=== PATIENT | female | born 1955 | race Caucasian/White ===

== ENCOUNTER → 2017-05-12 | Outpatient (CLI) | payer MEDICARE, OTHER ==
[~2017-05-12] MED LIST: REGADENOSON 0.4 MG/5 ML SYRINGE IV ONE
--- NOTE | 2017-05-12 10:08 | ECHOF ---
Referral Reason:R94.31 Abn EKG MEASUREMENTS -------- HEIGHT: 157.5 cm WEIGHT: 49.9 kg BP: 113/67 IVSd: 1.2 cm (0.6 - 1.1) LVIDd: 4.0 cm (3.9 - 5.3) LVPWd: 1.2 cm (0.6 - 1.1) IVSs: 1.6 cm LVIDs: 2.3 cm LVPWs: 1.8 cm LAESV Index (A-L): 34.49 ml/m Ao Diam: 3.2 cm (2.0 - 3.7) AV Cusp: 2.3 cm (1.5 - 2.6) LA Diam: 2.3 cm (2.7 - 3.8) MV EXCURSION: 16.703 mm (> 18.000) MV EF SLOPE: 111 mm/s (70 - 150) EPSS: 1.2 cm MV E Gomez: 0.91 m/s MV DecT: 186 ms MV A Gomez: 1.00 m/s MV E/A Ratio: 0.91 AR PHT: 399 ms RAP: 5.00 mmHg RVSP: 30.58 mmHg FINDINGS -------- Sinus rhythm. This was a technically good study. The left ventricular size is normal. There is mild concentric left ventricular hypertrophy. Overa ll left ventricular systolic function is normal with, an EF between 55 - 60 %. The right ventricle is normal in size. LA is moderately dilated 34-39 ml/m2 The right atrium is normal in size. The aortic valve is trileaflet, and appears structurally normal. No aortic stenosis or regurgitation. Mild mitral regurgitation is present. Mild tricuspid regurgitation present. The right ventricular systolic pressure, as measured by Doppl er, is 30.58mmHg. Pulmonic valve appears structurally normal. The aortic root, ascending aorta and aortic arch are normal. Normal inferior vena cava with normal inspiratory collapse consistent with estimated right atrial pre ssure of 5 mmHg. The pericardium is normal. CONCLUSIONS -------- 1. Sinus rhythm. 2. This was a technically good study. 3. The left ventricular size is normal. 4. There is mild concentric left ventricular hypertrophy. 5. Overall left ventricular systolic function is normal with, an EF between 55 - 60 %. 6. The right ventricle is normal in size. 7. LA is moderately dilated 34-39 ml/m2 8. The right atrium is normal in size. 9. The aortic valve is trileaflet, and appears structurally normal. No aortic stenosis or regurgitati on. 10. Mild mitral regurgitation is present. 11. Mild tricuspid regurgitation present. 12. The right ventricular systolic pressure, as measured by Doppler, is 30.58mmHg. 13. Pulmonic valve appears structurally normal. 14. The aortic root, ascending aorta and aortic arch are normal. 15. Normal inferior vena cava with normal inspiratory collapse consistent with estimated right atrial pressure of 5 mmHg. 16. The pericardium is normal. MUSIC AUTOGRAPHER: Ivonne Pascual RDCS
--- NOTE | 2017-05-12 11:16 | NM ---
EXAMINATION TYPE: NM stress lexiscan cardiolite DATE OF EXAM: 05/12/2017 COMPARISON: NONE HISTORY: Abnormal EKG TECHNIQUE: After the intravenous administration of 10.5 mCi Tc 99m Sestamibi - Cardiolite resting SP ECT images acquired 45 minutes post injection. The patient received 0.4mg Lexiscan, 25.4 mCi Tc 99m Sestamibi - Stress images obtained [address] injection FINDINGS: No stress-induced ischemic changes are evident. No fixed defects to suggest prior infarct a re evident. Ejection fraction is 67% is normal. Gated wall motion appears normal. There is a suggestion on the polar maps a small defect at the cardiac apex which is not identified on SPECT imaging. IMPRESSION: 1. No suspicious changes for stress-induced ischemic change. 2. No prior infarcts identified. 3. Ejection fraction of 67% is normal
--- NOTE | 2017-05-12 12:08 | P.STRESS ---
- Stress Test Note Stress Test Results/Findings: Exam Performed: NM stress lexiscan cardiolite Exam Date: 05/12/17 Reason for Exam: Abn EKG Height: 5 ft 2 in Weight: 49.895 kg Protocol: Sharon scan Stage: na Duration of Exercise: na Resting Heart Rate: 68 Resting Blood Pressure: 124/91 Maximum Achieved Heart Rate: 97 Maximum Achieved Blood Pressure: 133/87 85% PMHR: na 100% PMHR: na METS: na Technologist Comment: Stress Test Results/Findings: Baseline EKG showed sinus rhythm with normal NC interval and QRS duration. EKGs taken during and after the Lexiscan infusion did not reveal any changes to sized ischemia. New Final impression: #1. Negative Lexiscan stress test #2. Report on the nuclear images to be given by the radiologist
--- NOTE | 2017-05-15 12:12 | EST ---
Stress Test Results/Findings: Exam Performed: NM stress lexiscan cardiolite Exam Date: 05/12/17 Reason for Exam: Abn EKG Height: 5 ft 2 in Weight: 49.895 kg Protocol: Sharon scan Stage: na Duration of Exercise: na Resting Heart Rate: 68 Resting Blood Pressure: 124/91 Maximum Achieved Heart Rate: 97 Maximum Achieved Blood Pressure: 133/87 85% PMHR: na 100% PMHR: na METS: na Technologist Comment: Stress Test Results/Findings: Baseline EKG showed sinus rhythm with normal [place] interval and QRS duration. EKGs taken during and after the Lexiscan infusion did not reveal any changes to sized ischemia. New Final impression: #1. Negative Lexiscan stress test #2. Report on the nuclear images to be given by the radiologist COY
== END ==
LOC: RADNMMAIN 08:09
PROVIDERS: ATTEND Family Medicine
DX: R94.31 Abnormal electrocardiogram [ECG] [EKG] (principal)
CPT/HCPCS: 93017; 93306; 78452; A9500; J2785

== ENCOUNTER → 2017-06-12 | Outpatient (CLI) | payer MEDICARE, OTHER ==
--- NOTE | 2017-06-12 11:38 | XR ---
EXAMINATION TYPE: 2 views right wrist. 2 views right hand. DATE OF EXAM: 06/12/2017 COMPARISON: NONE HISTORY: 61-year-old female with right wrist and hand pain FINDINGS: There is impacted, mildly comminuted fracture of the distal radial metaphysis with mild dorsal displa cement and dorsal angulation. The midcarpal compartment and distal radioulnar joint appear intact. Th ere is associated soft tissue swelling. Moderate to severe degenerative changes at the first CMC joint. Additional osteoarthritic changes sca ttered throughout the DIP joints. No additional acute fracture or dislocation seen. IMPRESSION: Mildly comminuted and impacted Colles' fracture distal radius. Osteoarthritic changes within the hand.
== END | disposition home or self-care (01) ==
LOC: RADXRMAIN 11:10
PROVIDERS: ATTEND Family Medicine
DX: M19.041 Primary osteoarthritis, right hand (principal); S52.531A Colles' fracture of right radius, initial encounter for closed fracture

== ENCOUNTER 2021-03-15 20:38 | Emergency (ER) | payer MEDICARE, OTHER ==
[2021-03-15 21:32] VITALS: BP 152/94; PULSE 104; RESP 16; TEMP 99
[2021-03-15] MEDS ORDERED: ONDANSETRON 4 MG/2 ML VIAL IVP STA (23:43)
[2021-03-15] MEDS ORDERED: SODIUM CHLORIDE 0.9% 1,000 ML IV STA (23:43)
[2021-03-15] MEDS ORDERED: MORPHINE SULFATE 4 MG/ML SYRINGE IV STA (23:43)
[2021-03-15] MEDS ORDERED: PANTOPRAZOLE 40 MG/10 ML VIAL IVP STA (23:43)
--- NOTE | 2021-03-15 23:45 | ED ---
Abdominal Pain HPI - General Chief Complaint: Abdominal Pain Stated Complaint: Back Pain,Fever Time Seen by Provider: 03/15/21 22:10 Source: patient, family, RN notes reviewed, old records reviewed Mode of arrival: ambulatory Limitations: no limitations - History of Present Illness Initial Comments: This is a 65-year-old female to the emergency. Patient coming in with abdominal pain epigastric abdominal pain into her back. She does feel fevers or chills. Although she has no travel history sick contacts he has been back in for coronavirus and has no cough or congestion. Patient feels weak headed and dizzy dehydrated with a decreased appetite. Patient otherwise has history of appendix surgery MD Complaint: abdominal pain -: hour(s) Location: diffuse, periumbilical, epigastric Radiation: epigastric Migration to: epigastric Severity: moderate Severity scale (1-10): 4 Quality: cramping, stabbing Consistency: constant Improves With: nothing Worsens With: nothing Associated Symptoms: nausea - Related Data Home Medications Medication Instructions Recorded Confirmed Furosemide [Lasix] 40 mg PO BID 12/17/14 12/17/14 Hydrocodone/Acetaminophen [[place] 1 each PO Q6HR PRN 12/17/14 12/17/14 5-325] Potassium Chloride [Klor-Con 10] 10 meq PO DAILY 12/17/14 12/17/14 Spironolactone [Aldactone] 25 mg PO DAILY 12/17/14 12/17/14 traZODone HCL 50 mg PO BID 12/17/14 12/17/14 Previous Rx's Medication Instructions Recorded Ciprofloxacin HCl [Cipro] 500 mg PO Q12HR #20 tablet 12/18/14 Allergies Allergy/AdvReac Type Severity Reaction Status Date / Time No Known Allergies Allergy Verified 03/15/21 21:32 Review of Systems ROS Statement: Those systems with pertinent positive or pertinent negative responses have been documented in the HPI. ROS Other: All systems not noted in ROS Statement are negative. Past Medical History Additional Past Medical History / Comment(s): depression, History of Any Multi-Drug Resistant Organisms: None Reported Past Surgical History: Appendectomy, Section Past Psychological History: Depression Smoking Status: Current every day smoker Past Alcohol Use History: None Reported Past Drug Use History: None Reported General Exam Limitations: no limitations General appearance: cachectic Head exam: Present: atraumatic, normocephalic, normal inspection Eye exam: Present: normal appearance, PERRL, EOMI. Absent: scleral icterus, conjunctival injection, periorbital swelling ENT exam: Present: normal exam, mucous membranes moist Neck exam: Present: normal inspection. Absent: tenderness, meningismus, lymphadenopathy Respiratory exam: Present: normal lung sounds bilaterally. Absent: respiratory distress, wheezes, rales, rhonchi, stridor Cardiovascular Exam: Present: regular rate, normal rhythm, normal heart sounds. Absent: systolic murmur, diastolic murmur, rubs, gallop, clicks GI/Abdominal exam: Present: soft, normal bowel sounds. Absent: distended, tenderness, guarding, rebound, rigid Extremities exam: Present: normal inspection, full ROM, normal capillary refill. Absent: tenderness, pedal edema, joint swelling, calf tenderness Back exam: Present: normal inspection Neurological exam: Present: alert, oriented X3, CN II-XII intact Psychiatric exam: Present: normal affect, normal mood Skin exam: Present: warm, dry, intact, normal color. Absent: rash Course Vital Signs 03/15/21 21:28 Temperature 99.0 F Pulse Rate 104 H Respiratory 16 Rate Blood Pressure 152/94 O2 Sat by Pulse 100 Oximetry - Reevaluation(s) Reevaluation #1: 03/15/21 23:45 Medical record is reviewed Reevaluation #2: 03/16/21 02:00 Patient does have improvement of symptoms here in the ER Reevaluation #3: 03/16/21 02:00 She is informed results questions answered Medical Decision Making - Medical Decision Making 65 female with abdominal pain nausea and vomiting. Patient is feeling much better here in the ER and can be discharged home CT labwork are otherwise neg ative - Lab Data Result diagrams: 03/15/21 23:43 03/15/21 23:43 Lab Results 03/15/21 03/15/21 03/15/21 Range/Units 23:43 23:43 23:43 WBC 11.5 H (3.8-10.6) k/uL RBC 5.18 (3.80-5.40) m/uL Hgb 16.0 (11.4-16.0) gm/dL Hct 47.6 H (34.0-46.0) % MCV 91.8 (80.0-100.0) fL MCH 30.9 (25.0-35.0) pg MCHC 33.6 (31.0-37.0) g/dL RDW 12.9 (11.5-15.5) % Plt Count 177 (150-450) k/uL MPV 9.3 Neutrophils % 77 % Lymphocytes % 13 % Monocytes % 7 % Eosinophils % 0 % Basophils % 0 % Neutrophils # 8.8 H (1.3-7.7) k/uL Lymphocytes # 1.6 (1.0-4.8) k/uL Monocytes # 0.9 (0-1.0) k/uL Eosinophils # 0.0 (0-0.7) k/uL Basophils # 0.0 (0-0.2) k/uL Sodium 134 L (137-145) mmol/L Potassium 3.9 (3.5-5.1) mmol/L Chloride 99 (98-107) mmol/L Carbon Dioxide 25 (22-30) mmol/L Anion Gap 10 mmol/L BUN 10 (7-17) mg/dL Creatinine 0.48 L (0.52-1.04) mg/dL Est GFR (CKD-EPI)AfAm >90 (>60 ml/min/1.73 sqM) Est GFR (CKD-EPI)NonAf >90 (>60 ml/min/1.73 sqM) Glucose 108 H (74-99) mg/dL Plasma Lactic Acid Joseph (0.7-2.0) mmol/L Calcium 11.2 H (8.4-10.2) mg/dL Total Bilirubin 1.2 (0.2-1.3) mg/dL AST 49 H (14-36) U/L ALT 25 (4-34) U/L Alkaline Phosphatase 109 (38-126) U/L C-Reactive Protein <0.5 (<1.0) mg/dL Total Protein 8.6 H (6.3-8.2) g/dL Albumin 4.7 (3.5-5.0) g/dL Amylase 105 (30-110) U/L Lipase 194 (23-300) U/L Urine Color Yellow Urine Appearance Clear (Clear) Urine pH 7.0 (5.0-8.0) Ur Specific Williams 1.018 (1.001-1.035) Urine Protein 1+ H (Negative) Urine Glucose (UA) Trace H (Negative) Urine Ketones Negative (Negative) Urine Blood Negative (Negative) Urine Nitrite Negative (Negative) Urine Bilirubin Negative (Negative) Urine Urobilinogen <2.0 (<2.0) mg/dL Ur Leukocyte Esterase Trace H (Negative) Urine RBC 2 (0-5) /hpf Urine WBC 6 H (0-5) /hpf Ur Squamous Epith Cells 2 (0-4) /hpf Calcium Oxalate Crystal Rare H (None) /hpf Urine Bacteria Rare H (None) /hpf Hyaline Casts 3 H (0-2) /lpf Urine Mucus Occasional H (None) /hpf 03/15/21 Range/Units 23:43 WBC (3.8-10.6) k/uL RBC (3.80-5.40) m/uL Hgb (11.4-16.0) gm/dL Hct (34.0-46.0) % MCV (80.0-100.0) fL MCH (25.0-35.0) pg MCHC (31.0-37.0) g/dL RDW (11.5-15.5) % Plt Count (150-450) k/uL MPV Neutrophils % % Lymphocytes % % Monocytes % % Eosinophils % % Basophils % % Neutrophils # (1.3-7.7) k/uL Lymphocytes # (1.0-4.8) k/uL Monocytes # (0-1.0) k/uL Eosinophils # (0-0.7) k/uL Basophils # (0-0.2) k/uL Sodium (137-145) mmol/L Potassium (3.5-5.1) mmol/L Chloride (98-107) mmol/L Carbon Dioxide (22-30) mmol/L Anion Gap mmol/L BUN (7-17) mg/dL Creatinine (0.52-1.04) mg/dL Est GFR (CKD-EPI)AfAm (>60 ml/min/1.73 sqM) Est GFR (CKD-EPI)NonAf (>60 ml/min/1.73 sqM) Glucose (74-99) mg/dL Plasma Lactic Acid Joseph 2.2 H* (0.7-2.0) mmol/L Calcium (8.4-10.2) mg/dL Total Bilirubin (0.2-1.3) mg/dL AST (14-36) U/L ALT (4-34) U/L Alkaline Phosphatase (38-126) U/L C-Reactive Protein (<1.0) mg/dL Total Protein (6.3-8.2) g/dL Albumin (3.5-5.0) g/dL Amylase (30-110) U/L Lipase (23-300) U/L Urine Color Urine Appearance (Clear) Urine pH (5.0-8.0) Ur Specific Williams (1.001-1.035) Urine Protein (Negative) Urine Glucose (UA) (Negative) Urine Ketones (Negative) Urine Blood (Negative) Urine Nitrite (Negative) Urine Bilirubin (Negative) Urine Urobilinogen (<2.0) mg/dL Ur Leukocyte Esterase (Negative) Urine RBC (0-5) /hpf Urine WBC (0-5) /hpf Ur Squamous Epith Cells (0-4) /hpf Calcium Oxalate Crystal (None) /hpf Urine Bacteria (None) /hpf Hyaline Casts (0-2) /lpf Urine Mucus (None) /hpf - Radiology Data Radiology results: report reviewed (CT head and pelvis is negative for acute disease), image reviewed Disposition Clinical Impression: Abdominal pain Disposition: HOME SELF-CARE Condition: Good Instructions (If sedation given, give patient instructions): Abdominal Pain (ED) Is patient prescribed a controlled substance at d/c from ED?: No Referrals: Claudio Garcia MD [Primary Care Provider] - 1-2 days
[2021-03-16 00:49] LABS: Basophils % (A) 0 %; Eosinophils % (A) 0 %; HCT 47.6 % (34.0-46.0); Lymphocytes # (A) 1.6 k/uL (1.0-4.8); Lymphocytes % (A) 13 %; MCH 30.9 pg (25.0-35.0); MCHC 33.6 g/dL (31.0-37.0); MCV 91.8 fL (80.0-100.0); Mean Platelet Volume 9.3; Monocytes # (A) 0.9 k/uL (0-1.0); Monocytes % (A) 7 %; Neutrophils # (A) 8.8 k/uL (1.3-7.7); Neutrophils % (A) 77 %; Platelet Count 177 k/uL (150-450); RBC 5.18 m/uL (3.80-5.40); RDW 12.9 % (11.5-15.5); WBC 11.5 k/uL (3.8-10.6)
[2021-03-16 00:59] LABS: Appearance,Urine Clear (Clear); Bacteria,Urine Rare /hpf; Bilirubin,Urine Negative (Negative); Blood,Urine Negative (Negative); Calcium Oxalate Crystals,Urine Rare /hpf; Color,Urine Yellow; Glucose,Urine (UA) Trace (Negative); Hyaline Casts,Urine 3 /lpf (0-2); Ketones,Urine Negative (Negative); Leukocyte Esterase,Urine Trace (Negative); Mucus,Urine Occasional /hpf; Nitrite,Urine Negative (Negative); Protein,Urine 1+ (Negative); RBC,Urine 2 /hpf (0-5); Specific Gravity,Urine 1.018 (1.001-1.035); Squamous Epithelial Cell,Urine 2 /hpf (0-4); Urobilinogen,Urine <2.0 mg/dL (<2.0); WBC,Urine 6 /hpf (0-5)
[2021-03-16 01:16] LABS: ALT 25 U/L (4-34); AST 49 U/L (14-36); African American GFR (CKD) >90 (>60 ml/min/1.73 sqM); Albumin 4.7 g/dL (3.5-5.0); Alkaline Phosphatase 109 U/L (38-126); Amylase 105 U/L (30-110); Anion Gap 10 mmol/L; Blood Urea Nitrogen 10 mg/dL (7-17); C Reactive Protein <0.5 mg/dL (<1.0); Calcium 11.2 mg/dL (8.4-10.2); Carbon Dioxide 25 mmol/L (22-30); Chloride 99 mmol/L (98-107); Glucose 108 mg/dL (74-99); Lipase 194 U/L (23-300); Non-African American GFR(CKD) >90 (>60 ml/min/1.73 sqM); Potassium 3.9 mmol/L (3.5-5.1); Sodium 134 mmol/L (137-145); Total Bilirubin 1.2 mg/dL (0.2-1.3); Total Protein 8.6 g/dL (6.3-8.2)
--- NOTE | 2021-03-16 01:36 | CT ---
EXAMINATION TYPE: CT abdomen pelvis w con DATE OF EXAM: 03/16/2021 COMPARISON: None HISTORY: Abd. pain back pain fever CT DLP: 449.6 mGycm Automated exposure control for dose reduction was used. CONTRAST: Performed with IV Contrast, patient injected with 100 mL of Isovue 300. Images obtained from the diaphragm to the floor the pelvis with IV contrast. FINDINGS: Lung bases are clear. There is no pleural effusion. Heart size is normal. There is no pericardial eff usion. Liver spleen stomach pancreas appear intact. Bile ducts are not dilated. There is calcified small gal lstones. Liver has slightly irregular margin consistent with cirrhosis. There is no adrenal mass. Kidneys show satisfactory contrast opacification. There is no hydronephrosi s. Ureters are not dilated. There is no retroperitoneal adenopathy. There is 1 cm cortical cyst poste rior right kidney. Bladder distends smoothly. There are multiple large calcified uterine fibroids. Uterus is retroverted . There is no free fluid in the pelvis. There is no adnexal mass. Appendix is not seen. There clips p robably from appendectomy. There is no mesenteric edema. There is no ascites or free air. There are varicose veins on the anteri or subcutaneous abdomen. There is dilated umbilical vein. Lumbar vertebra appear intact. There is no compression fracture. There is no lumbar paraspinal mass. Pelvic ring is intact. Sacroiliac joints appear intact. Hip joints appear normal. IMPRESSION: Anterior varicose veins consistent with chronic portal venous hypertension. No portal vein thrombosis . No acute abnormality in the abdomen pelvis.
[2021-03-16] MEDS ORDERED: ACET/COD 300 MG/30 MG STARTER PACK 6 TAB BTL PO STA (02:00)
[2021-03-16] MEDS ORDERED: IBUPROFEN 600 MG STARTER PACK 4 TAB BTL PO STA (02:00)
[2021-03-16] MEDS ORDERED: ONDANSETRON 4 MG ODT STARTER PACK 2 TAB BTL PO STA (02:00)
== END 2021-03-16 02:15 | disposition home or self-care (01) ==
LOC: EC 20:38
DX: R10.9 Unspecified abdominal pain (principal); F17.200 Nicotine dependence, unspecified, uncomplicated; F32.9 Major depressive disorder, single episode, unspecified
CPT/HCPCS: 36415 ×2; 80053; 82150; 83605; 83690; 85025; 86140; 81001; 74177; 99284; 96374; 96375 ×2; 96361 ×2; J2270; J2405; S0119; C9113; Q9967

== ENCOUNTER → 2022-03-14 | Outpatient (CLI) | payer MEDICARE, OTHER ==
--- NOTE | 2022-03-16 08:06 | MM ---
Reason for Exam: Screening (asymptomatic). Last mammogram was performed 3 year(s) and 5 month(s) ago. Patient History: Menarche at age 13. First Full-Term at age 26. Postmenopausal. Risk Values: Simran 5 year model risk: 1.8%. NCI Lifetime model risk: 6.9%. Prior Study Comparison: 10/11/2018 Bilateral MG screening mammo w CAD - 2, [facility]. Tissue Density: The breast tissue is heterogeneously dense. This may lower the sensitivity of mammography. Findings: Analyzed By CAD. There is no suspicious group of microcalcifications or new suspicious mass in either breast. Benign calcifications within both breasts. Overall Assessment: Benign, BI-RAD 2 Management: Screening Mammogram of both breasts in 1 year. A clinical breast exam by your physician is recommended on an annual basis and results should be correlated with mammographic findings. Electronically signed and approved by: Navjot Bae D.O.
== END | disposition home or self-care (01) ==
LOC: RADMAMWWP 16:30
PROVIDERS: ATTEND Family Medicine
DX: Z12.31 Encounter for screening mammogram for malignant neoplasm of breast (principal); Z78.0 Asymptomatic menopausal state
CPT/HCPCS: 77067

== ENCOUNTER → 2022-03-24 | Outpatient (CLI) | payer MEDICARE, OTHER ==
--- NOTE | 2022-03-25 07:23 | US ---
EXAMINATION TYPE: US transvaginal DATE OF EXAM: 03/24/2022 COMPARISON: CT 2020 CLINICAL HISTORY: N93.9 vaginal bleeding. Intermittent spotting x 2 weeks TECHNIQUE: Transvaginal exam only per ordering physician Date of LMP: 10+ years ago EXAM MEASUREMENTS: Uterus: 6.8 x 5.4 x 4.1 cm Endometrial Stripe: cm Right Ovary: not seen Left Ovary: not seen 1. Uterus: retroverted, heterogeneous with multiple calcified fibroid with largest measuring 2.7 x 3 .1cm within fundus 2. Endometrium: limited visualization due to distortion and shadowing from uterine fibroids, fluid s een within visualized portion, difficult to measure 3. Right Ovary: not seen 4. Left Ovary: not seen 5. Bilateral Adnexa: wnl 6. Posterior cul-de-sac: wnl IMPRESSION: 1. Calcified leiomyomatous change.
== END | disposition home or self-care (01) ==
LOC: RADUSWWP 16:42
PROVIDERS: ATTEND Family Medicine
DX: D25.9 Leiomyoma of uterus, unspecified (principal)
CPT/HCPCS: 76830

== ENCOUNTER → 2022-06-09 | Outpatient (CLI) | payer MEDICARE, OTHER ==
--- NOTE | 2022-06-09 18:58 | BD ---
EXAMINATION TYPE: Axial Bone Density DATE OF EXAM: 06/09/2022 COMPARISON: NONE CLINICAL HISTORY: 66 years year old Female. 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 Bone mineral density as measured about the Lumbar spine is: ----- L1-L4(G/cm2): 0.847 T Score Values are as follows: ----- L1: -3.2 ----- L2: -3.0 ----- L3: -2.7 ----- L4: -2.5 ----- L1-L4: -2.8 Bone mineral density BASELINE Bone mineral density about the R hip (g/cm2): 0.638 Bone mineral density about the L hip (g/cm2): 0.597 T Score values are as follows: -----R Neck: -2.9 -----L Neck: -3.2 -----R Total: -2.8 -----L Total: -3.0 Bone mineral density BASELINE FRAX%s: The graph provided illustrates a 19.6 chance for a major osteoporotic fx and a 9.6 chance for the hips probability for fx in 10 years time. IMPRESSION: Osteoporosis (T Score less than -2.5). There is increased fracture risk and therapy is usually indicated based on age. Re-Screen 1-2 years. NOTE: T-SCORE=SD OF THE YOUNG ADULT MEAN.
== END | disposition home or self-care (01) ==
LOC: RADBDWWP 15:36
PROVIDERS: ATTEND Family Medicine
DX: C18.1 Malignant neoplasm of appendix (principal); Z78.0 Asymptomatic menopausal state; M81.0 Age-related osteoporosis without current pathological fracture
CPT/HCPCS: 77080